=== PATIENT | female | born 1935 | race Caucasian/White ===

== ENCOUNTER 2018-12-29 08:03 | Inpatient (IN) | payer MEDICARE ==
[~2018-12-29] VITALS: Ht 154.9 cm; Wt 45.4 kg
[2019-01-02 12:55] VITALS: BP 116/47
== END 2019-01-02 13:45 | DRG 480 ==
LOC: ED 09:16 → EDIP 10:35 → 4NOR 12:16
PROVIDERS: ADMIT Family Medicine; ATTEND Family Medicine
PROC: 0QSB04Z Reposition Right Lower Femur with Internal Fixation Device, Open Approach (ICD-10-PCS; principal; 2018-12-29)
DX: S72.461A Displaced supracondylar fracture with intracondylar extension of lower end of right femur, initial encounter for closed fracture (principal); J96.20 Acute and chronic respiratory failure, unspecified whether with hypoxia or hypercapnia; J98.11 Atelectasis; D72.828 Other elevated white blood cell count; H40.9 Unspecified glaucoma; I10 Essential (primary) hypertension; J43.9 Emphysema, unspecified; K59.03 Drug induced constipation; J98.4 Other disorders of lung; W01.0XXA Fall on same level from slipping, tripping and stumbling without subsequent striking against object, initial encounter; F17.210 Nicotine dependence, cigarettes, uncomplicated; M25.469 Effusion, unspecified knee; T40.605A Adverse effect of unspecified narcotics, initial encounter; Z66 Do not resuscitate; Z99.81 Dependence on supplemental oxygen; Y93.89 Activity, other specified; Y92.098 Other place in other non-institutional residence as the place of occurrence of the external cause; Y99.8 Other external cause status
CPT/HCPCS: 36415; 71045; 74018; 76000; 80048; 80053; 82040; 84439; 84443; 85025; 85610; 85730; 93005; 99285; C1713; G0378; J0690; J1100; J1650; J2250; J2405; J2704; J3010; Q0162; C1769; J0360; J2270; J2370; J7030

== ENCOUNTER → 2019-12-05 | Outpatient (CLI) | payer MEDICARE ==
[~2019-12-05] MED LIST: AMLO5TAB10 PO; ASPI-496 PO; HYDR-3237 PO; LOSA100T14 PO; TIMO1DRO2 EACHEYE; TIOT4MIS3 INH
== END | disposition home or self-care (01) ==
LOC: CFH 12:54
PROVIDERS: ATTEND Internal Medicine Cardiovascular Disease
DX: I08.0 Rheumatic disorders of both mitral and aortic valves (principal); I11.9 Hypertensive heart disease without heart failure
CPT/HCPCS: 93306